=== PATIENT | male | born 1955 | race Caucasian/White ===

== ENCOUNTER 2022-05-16 23:28 | Emergency (ER) | payer MEDICARE, SELFPAY ==
[2022-05-16 23:46] VITALS: BP 159/90; PULSE 88; RESP 16; TEMP 35.9; O2SAT 96; BMI 34.7
--- NOTE | 2022-05-17 00:11 | ED.MALEGU ---
HPI - Male Genitourinary General Chief complaint: Urogenital Problems, Male Stated complaint: R Testicle Pain Time Seen by Provider: 05/17/22 00:06 Source: patient, family and RN notes reviewed History of Present Illness HPI Narrative: 67-year-old man presenting to the emergency department with concern right testicular area pain. Feels like he has been kicked in the balls. Has not had any recent trauma. Remote vasectomy. He admits he might be little constipated. Has a general sense of fullness. Does not have any dysuria or pain otherwise with bowel movement. No unusual penile discharge is described. No melena or hematochezia described. Underlying history of Parkinson's. No fever. Hurts more to lay down. Related Data Home Medications Medication Instructions Recorded Confirmed atorvastatin 20 mg tablet 20 mg PO .QHS 05/17/22 05/17/22 carbidopa 25 mg-levodopa 100 mg 2 tab PO QID 05/17/22 05/17/22 tablet cholecalciferol (vitamin D3) 50 2,000 unit PO DAILY 05/17/22 05/17/22 mcg (2,000 unit) capsule (D3-1999) clobetasol 0.05 % scalp solution 1 applic TOPICAL DAILY 05/17/22 05/17/22 folic acid-vit B6-vit B12 2.5 1 tab PO DAILY 05/17/22 05/17/22 mg-25 mg-2 mg tablet (Folbic) lisinopril 10 mg tablet 10 mg PO DAILY 05/17/22 05/17/22 melatonin 5 mg capsule 5 mg PO .QHS PRN 05/17/22 05/17/22 Allergies Allergy/AdvReac Type Severity Reaction Status Date / Time amoxicillin [From Augmentin] Allergy Intermediate Vomiting Verified 05/17/22 00:36 clavulanic acid Allergy Intermediate Vomiting Verified 05/17/22 00:36 [From Augmentin] Sulfa (Sulfonamide Allergy Intermediate Hives Verified 05/17/22 00:36 Antibiotics) Review of Systems Status of ROS: Reports: 6 or more systems reviewed and unremarkable except as noted in History and below [facility] Medical History AAA (abdominal aortic aneurysm) Chronic back pain Diverticulosis of sigmoid colon Hyperlipidemia Hypertension Lower back pain Parkinson disease REM sleep behavior disorder Sleep apnea Vitamin D deficiency Surgical History H/O vasectomy S/P trigger finger release Social History Smoking Status: Unknown if ever smoked Second hand tobacco smoke exposure: No How often do you have a drink containing alcohol: never How often do you have six or more drinks on one occasion: Never AUDIT-C Alcohol total score: 0 Non-prescribed substance use: denies use Exam Narrative: Exam Narrative: Pleasant. NAD. Prefers to sit. He is breathing easily. Bespectacled. Speaking easily fluidly. Cranial nerves 2-12 intact. Moving all extremities without difficulty. Well perfused peripherally. No peripheral edema. Lungs are clear. Cardiovascular RRR no MR G Abdomen with normoactive bowel sounds. Overweight. There is no flank pain. Maybe a small umbilical hernia. Difficult though to palpate for any masses. None are palpated. Groin/ -- circumcised male. Retracted a little into prepubertal fat. Left testicle smooth -. No testicular or epididymal tenderness. Right testicle is a little smaller high-riding. Slight discomfort in the epididymal area. Also smooth testicle. Palpation of the right in canal there is a fullness I thought I palpated a little bit of crepitus consistent with bowel. Again there is a fullness in the right more so than the left. One point did elicit a good deal of discomfort to palpation in here on the right. Const: Vital Signs, click to edit/add: Vital Signs - 24 hr 05/16/22 23:46 Temperature 96.7 F L Pulse Rate [Right Pulse Oximeter] 88 Respiratory Rate 16 Blood Pressure [Le ft Upper Arm] 159/90 H Pulse Oximetry 96 Documenting provider has reviewed patient's vital signs: yes Course Course Hospital Course: Urinalysis is pending. We will also do a pelvic CT to further assess for hernia or other abnormality. Differential certainly includes prostatitis but seems less likely given clinical picture and exam though I did not evaluate the prostate directly at this point. abruptness of onset suggests hernia, epiploic appendigitis, ureteral stone/colic given norco and zofran and ketorolac for pain. overall notably improved. i did review pelvic ct scan images -- radiology noted 4mm stone in bladder, no hernia ua with trace lysed blood. 2-5 wbc's on micro Vital Signs Vital signs: Initial Vital Signs Temperature 96.7 F L 05/16/22 23:46 Temperature Source Temporal Artery Scan 05/16/22 23:46 Pulse Rate 88 05/16/22 23:46 Respiratory Rate 16 05/16/22 23:46 Blood Pressure 159/90 H 05/16/22 23:46 Blood Pressure Mean 113 05/16/22 23:46 Blood Pressure Position Standing 05/16/22 23:46 Pulse Oximetry 96 05/16/22 23:46 Oxygen Delivery Method 05/16/22 23:46 Vital Signs Temperature 96.7 F L 05/16/22 23:46 Pulse Rate 88 05/16/22 23:46 Respiratory Rate 16 05/16/22 23:46 Blood Pressure 159/90 H 05/16/22 23:46 Pulse Oximetry 96 05/16/22 23:46 Temperature 96.7 F L 05/16/22 23:46 Pulse Rate 88 05/16/22 23:46 Respiratory Rate 16 05/16/22 23:46 Blood Pressure 159/90 H 05/16/22 23:46 Pulse Oximetry 96 05/16/22 23:46 MDM - Male Genitourinary MDM Narrative Medical decision making narrative: see above Medical Records Attestation: I reviewed the patient's medical records. Lab Data Attestation: I reviewed the patient's lab results. Labs: Lab Results 05/17/22 Range/Units 00:12 Urine Color Yellow (Yellow) Urine Appearance Slightly Cloudy A (Clear) Urine pH 6.0 (5.0-8.5) Ur Specific [place] >= 1.030 (1.000-1.030) Urine Protein Negative (Negative) Urine Glucose (UA) Negative (Negative) Urine Ketones Trace A (Negative) Urine Blood Trace-lysed A (Negative) Urine Nitrite Negative (Negative) Urine Bilirubin Negative (Negative) Urine Urobilinogen 0.2 (0.2-1.0) Ur Leukocyte Esterase Trace A (Negative) Urine RBC 0-2 (0-2) Urine WBC 2-5 (0-5) Ur Squamous Epith Cells None (None-Few) Urine Bacteria None (None) Discharge Plan Discharge Clinical Impression: Ureteral colic, Nephrolithiasis Patient Disposition: Home w/ Parent or Adult Condition: Improved Additional Instructions: To hydrate. Strain urine over this next week. Return for inability to control pain, repeated vomiting, fever. Be seen for discomfort lasting 4-5 days. Given prescriptions of [place] and Zofran from [facility] along with tamsulosin. Prescriptions: No Action lisinopril 10 mg tablet 10 mg PO DAILY 0RF Label Comments: TAKE ONE TABLET BY MOUTH ONE TIME DAILY atorvastatin 20 mg tablet 20 mg PO .QHS 0RF Label Comments: TAKE ONE TABLET BY MOUTH ONE TIME DAILY AT BEDTIME carbidopa-levodopa 25-100 mg tablet 2 tab PO QID 0RF Label Comments: Take 2 tablets by mouth 5 (five) times a day. Folbic 2.5-25-2 mg tablet 1 tab PO DAILY 0RF Label Comments: TAKE ONE TABLET BY MOUTH ONE TIME DAILY melatonin 5 mg capsule 5 mg PO .QHS PRN 0RF cholecalciferol (vitamin D3) [D3-2000] 50 mcg (2,000 unit) capsule 2,000 unit PO DAILY 0RF clobetasol 0.05 % solution 1 applic topical DAILY 0RF Follow Up/Referrals: Karin Willis MD [Primary Care Provider] - Stand Alone Forms: [employer] Info Instructions
[2022-05-17 00:23] LABS: Appearance Urine Slightly Cloudy (Clear); Bilirubin Urine Negative (Negative); Blood Urine Trace-lysed (Negative); Color Urine Yellow (Yellow); Glucose Urine Negative (Negative); Ketones Urine Trace (Negative); Leukocyte Esterase Urine Trace (Negative); Nitrite Urine Negative (Negative); Protein Urine Negative (Negative); Specific Gravity Urine >= 1.030 (1.000-1.030); Urobilinogen Urine 0.2 (0.2-1.0)
--- NOTE | 2022-05-17 00:26 | CT_ITS ---
Final Report Patient: CAITLIN GOINS Facility:?[facility] Patient ID:?[id number] Site Patient ID:?[id number] Site :?[id number] Study:?CT Pelvis W/O-05/17/2022 1:11:04 AM Ordering Physician:SALO KEE Final Report: INDICATION: Groin pain TECHNIQUE: CT pelvis without contrast. COMPARISON: None FINDINGS: Bones: Alignment is normal. No sign of acute fracture. No suspicious bony lesions. Joints: Unremarkable. Soft tissues: No inguinal hernia or inguinal mass. There is a 4 mm stone in the dependent portion of the right side of the urinary bladder. There is mild dilatation and minimal fat stranding around the distal right ureter. IMPRESSION: No inguinal hernia or inguinal mass. 4 mm stone in the urinary bladder with mild dilatation and fat stranding around the distal right ureter likely representing a recently passed right renal stone. Please note that all CT scans at this facility use dose modulation, iterative reconstruction, and/or weight-based dosing when appropriate to reduce radiation dose to as low as reasonably achievable. Dictated by Kortney Larson MD @ 05/17/2022 1:22:36 AM (Electronic Signature)
[2022-05-17 00:31] LABS: RBC Urine 0-2 (0-2)
--- NOTE | 2022-05-17 00:32 | PC.NURSE ---
Patient took home dose of sinemet. OK per Dr. Reina.
[2022-05-17] MEDS: ONDANSETRON ODT 4 MG TAB PO (01:20)
[2022-05-17] MEDS: HYDROCODONE-ACETAMIN 5-325 MG 1 TAB 2 TAB PO (01:20)
[2022-05-17] MEDS: KETOROLAC 60 MG/2 ML inj IM (01:25)
== END 2022-05-17 01:57 | disposition home or self-care (01) ==
PROVIDERS: Emergency Provider Family Medicine; PCP Internal Medicine
DX: N23 Unspecified renal colic (principal); N20.0 Calculus of kidney
CPT/HCPCS: 72192; 81001; 81003; 96372; 99283; 99284; A9270; J1885

== ENCOUNTER 2022-06-09 15:45 | Outpatient (RCR) | payer MEDICARE, SELFPAY ==
--- NOTE | 2022-07-10 12:16 | PT.OPEX ---
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 Weight Bearing Status Full Weight Bearing Therapy Limitations/Systems Review Not Limited Assessment Assessment/Impression pt is a kind gentleman who is in a world of hurt right now. He has been dealing with this right upper trap/neck pain for 3 wks. then 2.5 wks ago he got kidney stones and 5 days ago had them removed. Since that time he has been cathertarized so positionally he can't lie on his stomach. With the pain in his neck/ trap he can't lie on his back, so the only position he can tolerate for awhile is left sidelying. He has a palpably swollen area just above the medial corner of his right scapula. 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 His cervicle ROM is very limited . I didn't assess his shoulder ROM because raising it increases his pain. He has had a similar situation with TOS 6 mos ago which he did PT for and it was better. He has been through our [facility] program. pt may benefit from skilled PT of EStim, stm, eventual te. Plan of Care Rehabilitation Potential Fair Physical Therapy Goals 1. pt will find a comfortable position where he isn't fighting gravity and work on anti inflammation with ice and medication 2. in 3 wks pt will be able to sleep regularly at night so as to have sometime where he isn't in pain 3. in 8 wks pt will be able to sit up so that he isn't in a upper body flexed position that feeds into a spasm/ guarding of the right upper trap LT. return to being able to perform normal ADLs with 3 /10 max right shoulder pain 5. 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
== END 2022-07-22 09:59 | disposition home or self-care (01) ==
PROVIDERS: PCP Internal Medicine; Visit Provider Internal Medicine
DX: M62.830 Muscle spasm of back (principal); R20.0 Anesthesia of skin; Z51.89 Encounter for other specified aftercare
CPT/HCPCS: 97032; 97140; 97163

== ENCOUNTER 2022-07-07 10:25 | Outpatient (CLI) | payer MEDICARE, SELFPAY ==
[2022-07-07 13:55] LABS: Chloride* 102 mmol/L (96-114)
[2022-07-07 13:56] LABS: Potassium* 4.3 mmol/L (3.6-5.1); Sodium* 138 mmol/L (135-149)
[2022-07-07 13:58] LABS: Creatinine* 0.9 mg/dL (0.5-1.5); Estimated Glomerular Filt Rate 95 ml/min
[2022-07-07 13:59] LABS: Blood Urea Nitrogen* 25 mg/dL (7-30); Calcium* 9.6 mg/dL (8.4-10.6); Carbon Dioxide* 28 mmol/L (20-32); Glucose* 98 mg/dL (60-115)
== END 2022-07-07 10:26 | disposition home or self-care (01) ==
LOC: LONREF 10:27
PROVIDERS: PCP Internal Medicine; Visit Provider Nurse Practitioner Family
DX: Z01.818 Encounter for other preprocedural examination (principal)
CPT/HCPCS: 80048

== ENCOUNTER 2023-02-08 08:00 | Outpatient (CLI) | payer MEDICARE, SELFPAY | END 2023-02-08 08:01 | disposition home or self-care (01) | LOC: NFLDREF 17:10 | PROVIDERS: PCP Internal Medicine; Referring Provider Internal Medicine; Visit Provider Internal Medicine | DX: E78.5 Hyperlipidemia, unspecified (principal); I10 Essential (primary) hypertension | CPT/HCPCS: 80048; 80061 ==

== ENCOUNTER 2023-02-17 07:04 | Outpatient (CLI) | payer MEDICARE, SELFPAY ==
--- NOTE | 2023-02-17 07:15 | CRLHL7_ITS ---
For Patients: As a result of the Century Cures Act, medical imaging exams and procedure reports are released immediately into your electronic medical record. You may view this report before your referring provider. If you have questions, please contact your health care provider. INDICATION: Abdominal aortic aneurysm TECHNIQUE: Ultrasound abdominal aorta COMPARISON: These have FINDINGS: The proximal abdominal aorta measures 0.1 centimeter x 5.0 centimeter, mid aorta measures 2.2 centimeter x 2.2 centimeter, distal aorta measures 2.3 centimeter x 2.2 centimeter, right common iliac artery measures 1.3 centimeter x 1.2 centimeter, and the left common iliac artery measures 1.3 centimeter x 1.2 centimeter. There are no periaortic abnormalities evident. IMPRESSION: Proximal abdominal aortic aneurysm measuring 4.1 centimeter x 5.0 centimeter. Is previously measured 4.2 centimeter x 4.4 centimeter on 01/21/2022. Vascular consultation recommended Dictated by Fransisco Ferguson MD @ 02/17/2023 12:25:14 PM (Electronically Signed)
== END 2023-02-17 07:05 | disposition home or self-care (01) ==
LOC: US 07:04
PROVIDERS: PCP Internal Medicine; Visit Provider Internal Medicine
DX: I71.40 Abdominal aortic aneurysm, without rupture, unspecified (principal)
CPT/HCPCS: 76775

== ENCOUNTER 2023-12-02 08:46 | Outpatient (CLI) | payer MEDICARE, SELFPAY | END 2023-12-02 08:47 | disposition home or self-care (01) | LOC: FRMREF 08:48 | PROVIDERS: PCP Internal Medicine; Visit Provider Dermatology | DX: L40.9 Psoriasis, unspecified (principal); Z79.631 Long term (current) use of antimetabolite agent | CPT/HCPCS: 80076 ==

== ENCOUNTER 2023-12-30 08:03 | Outpatient (CLI) | payer MEDICARE, SELFPAY | END 2023-12-30 08:04 | disposition home or self-care (01) | LOC: FRMREF 08:05 | PROVIDERS: PCP Internal Medicine; Visit Provider Dermatology | DX: L40.0 Psoriasis vulgaris (principal); Z79.631 Long term (current) use of antimetabolite agent | CPT/HCPCS: 80053 ==

== ENCOUNTER 2024-02-21 07:35 | Outpatient (CLI) | payer MEDICARE, SELFPAY | END 2024-02-21 07:36 | disposition home or self-care (01) | LOC: NFLDREF 02-23 07:41 | PROVIDERS: PCP Internal Medicine; Referring Provider Internal Medicine; Visit Provider Internal Medicine | DX: E78.5 Hyperlipidemia, unspecified (principal); I10 Essential (primary) hypertension; R73.03 Prediabetes; Z12.5 Encounter for screening for malignant neoplasm of prostate | CPT/HCPCS: 80048; 80061; 84153; G0103 ==

== ENCOUNTER 2024-05-30 12:13 | Outpatient (REF) | payer MEDICARE, SELFPAY ==
[2024-05-30 12:55] LABS: Basophils Absolute Auto 0.02 K/uL (0.00-0.30); Basophils Percent Auto 0.3 % (0.0-3.0); Eosinophils Percent Auto 7.1 % (0.0-7.0); Hematocrit 46.1 % (37.0-53.0); Hemoglobin* 14.9 gm/dL (13.5-17.5); Immature Granulocytes Abs Auto 0.02 K/uL (0.00-0.30); Immature Granulocytes Pct Auto 0.3 %; Lymphocytes Absolute Auto 1.27 K/uL (0.90-2.90); Lymphocytes Percent Auto 20.6 % (20-44); Mean Corpuscular HGB Conc 32 gm/dL (32-36); Mean Corpuscular Hemoglobin 35 pg (26-34); Mean Corpuscular Volume 107 fL (80-100); Monocytes Percent Auto 10.7 % (0.0-11.0); Neutrophils Absolute Auto 3.77 K/uL (1.7-7.0); Platelet Count* 193 K/uL (140-440); Red Blood Count 4.32 m/uL (4.30-5.90); White Blood Count* 6.18 K/uL (4.50-11.00)
[2024-05-30 12:58] LABS: Slide Review Reflex No
[2024-05-30 13:02] LABS: Albumin* 4.3 g/dL (3.3-5.0); Chloride* 106 mmol/L (96-114); Potassium* 4.5 mmol/L (3.6-5.1); Sodium* 141 mmol/L (135-149)
[2024-05-30 13:04] LABS: Creatinine* 1.1 mg/dL (0.5-1.5); Estimated Glomerular Filt Rate 74 ml/min
[2024-05-30 13:05] LABS: Alanine Aminotransferase* 11 U/L (4-50); Alkaline Phosphatase* 64 U/L (40-150); Anion Gap 6 mEq/L (7-15); Aspartate Amino Transferase* 36 U/L (12-35); Bilirubin Total* 0.7 mg/dL (0.1-1.5); Blood Urea Nitrogen* 22 mg/dL (7-30); Calcium* 9.6 mg/dL (8.4-10.6); Carbon Dioxide* 29 mmol/L (20-32); Glucose* 110 mg/dL (60-115)
== END 2024-05-30 12:14 | disposition home or self-care (01) ==
LOC: NPINS 12:13
PROVIDERS: PCP Internal Medicine; Visit Provider Internal Medicine
DX: L40.0 Psoriasis vulgaris (principal); L29.8 Other pruritus; Z79.899 Other long term (current) drug therapy
CPT/HCPCS: 80053; 85025

== ENCOUNTER 2024-06-05 13:00 | Outpatient (RCR) | payer MEDICARE, SELFPAY | END 2024-10-03 23:59 | disposition home or self-care (01) | PROVIDERS: PCP Internal Medicine; Visit Provider Nurse Practitioner | DX: G20.A1 Parkinson's disease without dyskinesia, without mention of fluctuations (principal); M54.59 Other low back pain; M62.81 Muscle weakness (generalized); Z51.89 Encounter for other specified aftercare | CPT/HCPCS: 97112; 97140; 97163 ==

== ENCOUNTER 2024-09-25 12:33 | Outpatient (REF) | payer MEDICARE, SELFPAY ==
[2024-09-25 12:46] LABS: Albumin* 4.4 g/dL (3.3-5.0); Basophils Absolute Auto 0.01 K/uL (0.00-0.30); Basophils Percent Auto 0.1 % (0.0-3.0); Chloride* 102 mmol/L (96-114); Eosinophils Absolute Auto 0.18 K/uL (0.00-0.50); Eosinophils Percent Auto 2.6 % (0.0-7.0); Hemoglobin* 15.7 gm/dL (13.5-17.5); Immature Granulocytes Abs Auto 0.02 K/uL (0.00-0.30); Immature Granulocytes Pct Auto 0.3 %; Lymphocytes Absolute Auto 1.43 K/uL (0.90-2.90); Lymphocytes Percent Auto 20.3 % (20-44); Mean Corpuscular HGB Conc 33 gm/dL (32-36); Mean Corpuscular Hemoglobin 34 pg (26-34); Mean Corpuscular Volume 101 fL (80-100); Monocytes Percent Auto 8.9 % (0.0-11.0); Neutrophils Absolute Auto 4.77 K/uL (1.7-7.0); Neutrophils Percent Auto 67.8 % (42.0-72.0); Platelet Count* 200 K/uL (140-440); RDW Coefficient of Variation % 13.1 % (11.5-15.5); Red Blood Count 4.64 m/uL (4.30-5.90); White Blood Count* 7.04 K/uL (4.50-11.00)
[2024-09-25 12:47] LABS: Potassium* 4.2 mmol/L (3.6-5.1); Sodium* 138 mmol/L (135-149)
[2024-09-25 12:49] LABS: Alkaline Phosphatase* 66 U/L (40-150); Anion Gap 7 mEq/L (7-15); Aspartate Amino Transferase* 39 U/L (12-35); Bilirubin Total* 0.8 mg/dL (0.1-1.5); Blood Urea Nitrogen* 23 mg/dL (7-30); Carbon Dioxide* 29 mmol/L (20-32); Creatinine* 1.1 mg/dL (0.5-1.5); Estimated Glomerular Filt Rate 74 ml/min; Total Protein* 7.1 g/dL (6.0-8.3)
[2024-09-25 12:50] LABS: Alanine Aminotransferase* 24 U/L (4-50); Calcium* 9.6 mg/dL (8.4-10.6); Glucose* 92 mg/dL (60-115)
[2024-09-25 12:55] LABS: Slide Review Reflex No
== END 2024-09-25 12:34 | disposition home or self-care (01) ==
LOC: NPINS 12:33
PROVIDERS: PCP Internal Medicine; Visit Provider Physician Assistant Medical
DX: L40.0 Psoriasis vulgaris (principal); Z79.899 Other long term (current) drug therapy
CPT/HCPCS: 80053; 85025

== ENCOUNTER 2025-03-07 07:58 | Outpatient (CLI) | payer MEDICARE, SELFPAY | END 2025-03-07 07:59 | disposition home or self-care (01) | LOC: WOUND 07:58 | PROVIDERS: PCP Internal Medicine; Visit Provider Nurse Practitioner Family | DX: L89.323 Pressure ulcer of left buttock, stage 3 (principal); G20.C Parkinsonism, unspecified; R73.03 Prediabetes; M54.9 Dorsalgia, unspecified | CPT/HCPCS: 11042; G0463 ==

== ENCOUNTER 2025-03-14 09:34 | Outpatient (CLI) | payer MEDICARE, SELFPAY | END 2025-03-14 09:35 | disposition home or self-care (01) | LOC: WOUND 09:34 | PROVIDERS: PCP Internal Medicine; Visit Provider Nurse Practitioner Family | DX: L89.323 Pressure ulcer of left buttock, stage 3 (principal); R73.03 Prediabetes; G20.C Parkinsonism, unspecified | CPT/HCPCS: 11042 ==

== ENCOUNTER 2025-03-21 09:33 | Outpatient (CLI) | payer MEDICARE, SELFPAY | END 2025-03-21 09:34 | disposition home or self-care (01) | LOC: WOUND 09:33 | PROVIDERS: PCP Internal Medicine; Visit Provider Nurse Practitioner Family | DX: Z87.2 Personal history of diseases of the skin and subcutaneous tissue (principal); R73.03 Prediabetes; M54.9 Dorsalgia, unspecified; G20.C Parkinsonism, unspecified | CPT/HCPCS: G0463 ==

== ENCOUNTER 2025-06-21 10:38 | Outpatient (CLI) | payer MEDICARE, SELFPAY | END 2025-06-21 10:39 | disposition home or self-care (01) | PROVIDERS: PCP Internal Medicine; Visit Provider Internal Medicine | DX: E78.5 Hyperlipidemia, unspecified (principal); I10 Essential (primary) hypertension; N40.0 Benign prostatic hyperplasia without lower urinary tract symptoms; Z12.5 Encounter for screening for malignant neoplasm of prostate | CPT/HCPCS: 80048; 80061; G0103 ==

== ENCOUNTER 2025-07-04 09:45 | Outpatient (RCR) | payer MEDICARE, SELFPAY | END 2025-10-17 10:57 | disposition home or self-care (01) | PROVIDERS: PCP Internal Medicine; Visit Provider Student in an Organized Health Care Education/Training Program | DX: Z48.89 Encounter for other specified surgical aftercare (principal); Z51.89 Encounter for other specified aftercare | CPT/HCPCS: 97110; 97161 ==

== ENCOUNTER 2025-09-27 11:25 | Outpatient (CLI) | payer MEDICARE, SELFPAY ==
[2025-09-27 18:02] LABS: Albumin* 4.5 g/dL (3.3-5.0)
[2025-09-27 18:05] LABS: Alanine Aminotransferase* 21 U/L (4-50); Alkaline Phosphatase* 59 U/L (40-150); Aspartate Amino Transferase* 35 U/L (12-35); Bilirubin Direct* 0.4 mg/dL (0.0-0.5); Bilirubin Total* 0.7 mg/dL (0.1-1.5); Total Protein* 7.2 g/dL (6.0-8.3)
== END 2025-09-27 11:26 | disposition home or self-care (01) ==
LOC: NPINS 11:26
PROVIDERS: PCP Internal Medicine; Visit Provider Physician Assistant
DX: Z79.899 Other long term (current) drug therapy (principal)
CPT/HCPCS: 80076